=== PATIENT | female | born 1945 | race Caucasian/White ===

== ENCOUNTER 2017-07-06 07:56 | Outpatient (CLI) | payer MEDICARE, OTHER | END 2017-07-06 07:57 | disposition home or self-care (01) | DRG 556 | LOC: CONVCARE 07:56 | PROVIDERS: ATTEND Orthopaedic Surgery | DX: M25.552 Pain in left hip (principal); M16.12 Unilateral primary osteoarthritis, left hip | CPT/HCPCS: 73502 ==

== ENCOUNTER 2017-08-09 11:20 | Outpatient (CLI) | payer MEDICARE, OTHER | END 2017-08-09 11:21 | disposition home or self-care (01) | DRG 554 | LOC: CONVCARE 11:20 | PROVIDERS: ATTEND Orthopaedic Surgery | DX: M16.12 Unilateral primary osteoarthritis, left hip (principal) ==

== ENCOUNTER 2017-10-11 05:33 | Inpatient (IN) | payer MEDICARE, OTHER ==
[~2017-10-11 05:33] MED LIST: SODIUM CHLORIDE 0.9% FLUSH 10 ML SOL IV PRN
[2017-10-11] MEDS ORDERED: LACTATED RINGERS 1,000 ML IV ONE (06:00)
[2017-10-11] MEDS ORDERED: SODIUM CHLORIDE 0.9% 1000ML 1,000 ML IV SCH (06:00)
[2017-10-11] MEDS: SCOPOLAMINE 1.5MG PATCH TD SCH (06:23)
[2017-10-11] MEDS ORDERED: SODIUM CHLORIDE 0.9% 1000ML 1,000 ML IV ONE (07:00)
[2017-10-11] MEDS ORDERED: TRANEXAMIC ACID 100 MG/ML SOL ONE (07:08)
[2017-10-11] MEDS ORDERED: SODIUM CHLORIDE 20 ML 40 ML ONE (07:08)
[2017-10-11] MEDS ORDERED: BUPIVACAINE LIPOSOME 20 ML SUS ONE (07:09)
[2017-10-11] MEDS ORDERED: DEXAMETHASONE 20 MG/5 ML (4 MG/ML SOL) ONE (07:10)
[2017-10-11] MEDS ORDERED: ONDANSETRON HCL 4 MG/2 ML SOL ONE (07:10)
[2017-10-11] MEDS ORDERED: METOCLOPRAMIDE HYDROCHLORIDE 5 MG/ML SOL ONE (07:10)
[2017-10-11] MEDS ORDERED: HYDROMORPHONE 1 MG/ML SYRINGE ONE (07:10)
[2017-10-11] MEDS ORDERED: PROPOFOL 500 MG/50 ML EMU IV ONE ×3 (07:10→09:53)
[2017-10-11] MEDS ORDERED: MIDAZOLAM 2 MG/2 ML SOL ONE (07:10)
[2017-10-11] MEDS ORDERED: LIDOCAINE HCL 1% MPF SOL ONE (07:10)
[2017-10-11] MEDS ORDERED: LACTATED RINGERS 1,000 ML IV SCH (07:30)
[2017-10-11] MEDS ORDERED: EPHEDRINE SULFATE 50 MG/ML SOL ONE (08:20)
[2017-10-11] MEDS ORDERED: CEFAZOLIN SODIUM 1 GM PDS ONE ×2 (08:37→16:58)
[2017-10-11] MEDS ORDERED: VANCOMYCIN HYDROCHLORIDE 500 MG PDS IV ONE (08:57)
[2017-10-11] MEDS ORDERED: SODIUM CHLORIDE 0.9% FLUSH 10 ML SOL IV ONE (10:37)
[2017-10-11] MEDS ORDERED: DIPHENHYDRAMINE 25 MG CAP PO PRN (10:38)
[2017-10-11] MEDS ORDERED: ONDANSETRON HCL 4 MG/2 ML SOL IV PRN (10:38)
[2017-10-11] MEDS ORDERED: ONDANSETRON 4 MG ODT BU PRN (10:38)
[2017-10-11] MEDS ORDERED: SODIUM CHLORIDE 0.9% 500 ML 500 ML IV PRN (10:38)
[2017-10-11] MEDS ORDERED: MORPHINE SULFATE 10 MG/ML SOL IM PRN (10:38)
[2017-10-11] MEDS ORDERED: ALUMINUM/MAGNESIUM 30 ML SUS PO PRN (10:38)
[2017-10-11] MEDS ORDERED: FLEET ENEMA PR PRN (10:38)
[2017-10-11] MEDS ORDERED: MAGNESIUM HYDROXIDE 30 ML SUS PO PRN (10:38)
[2017-10-11] MEDS ORDERED: TEMAZEPAM 15MG 15 MG CAP PO PRN (10:38)
[2017-10-11] MEDS ORDERED: BISACODYL 10 MG SUP PR PRN (10:38)
[2017-10-11] MEDS ORDERED: DIAZEPAM 5 MG TAB PO PRN (10:38)
[2017-10-11] MEDS ORDERED: Non-Formulary Medication MISC (Nystatin 1 Gm Powder 1 APPL) TOP PRN (10:44)
[2017-10-11] MEDS: ACETAMINOPHEN 500 MG 500 MG TAB PO SCH ×3 (12:59→20:34)
[2017-10-11] MEDS: SODIUM CHLORIDE 0.9% 1000ML 1,000 ML IV SCH (13:50)
[2017-10-11] MEDS: SODIUM CHLORIDE 0.9% FLUSH 10 ML SOL IV SCH ×2 (16:29→18:56)
[2017-10-11] MEDS ORDERED: SODIUM CHLORIDE 0.9% 100 ML 100 ML IV ONE (16:58)
[2017-10-11] MEDS: CEFAZOLIN SODIUM 1 GM PDS 2 GM in SODIUM CHLORIDE 0.9% 100 ML 100 ML IV SCH (17:10)
[2017-10-11] MEDS: SENNOSIDES A AND B 8.6 MG TAB PO SCH (20:33)
[2017-10-11] MEDS: OXYCODONE HYDROCHLORIDE 5 MG TAB PO PRN (22:51)
[2017-10-12] MEDS ORDERED: CEFAZOLIN SODIUM 1 GM PDS ONE (00:05)
[2017-10-12] MEDS ORDERED: SODIUM CHLORIDE 0.9% 100 ML 100 ML IV ONE (00:05)
[2017-10-12] MEDS: CEFAZOLIN SODIUM 1 GM PDS 2 GM in SODIUM CHLORIDE 0.9% 100 ML 100 ML IV SCH (00:40)
[2017-10-12] MEDS: SODIUM CHLORIDE 0.9% FLUSH 10 ML SOL IV SCH ×3 (01:39→11:06)
[2017-10-12] MEDS: OXYCODONE HYDROCHLORIDE 5 MG TAB PO PRN ×6 (05:57→22:29)
[2017-10-12] MEDS: SODIUM CHLORIDE 0.9% 1000ML 1,000 ML IV SCH (05:59)
[2017-10-12] MEDS: LEVOTHYROXINE SODIUM 50 MCG TAB PO SCH (06:00)
[2017-10-12 07:23] LABS: MEAN CORPUSCULAR HGB CONC 33.1 gm/dl (32.0-36.0)
[2017-10-12] MEDS: ACETAMINOPHEN 500 MG 500 MG TAB PO SCH ×4 (08:26→20:59)
[2017-10-12] MEDS: FERROUS GLUCONATE 324 MG TABLET PO SCH (08:26)
[2017-10-12] MEDS: ALLOPURINOL 100 MG TAB PO SCH (08:27)
[2017-10-12] MEDS: RIVAROXABAN 10 MG TAB PO SCH (08:27)
[2017-10-12] MEDS: FUROSEMIDE 40 MG TAB PO SCH (08:27)
[2017-10-12 08:40] LABS: CALCIUM 8.2 mg/dl (8.5-10.1); POTASSIUM 4.5 mMol/L (3.5-5.1)
[2017-10-12] MEDS ORDERED: SODIUM CHLORIDE 0.9% 500 ML 500 ML IV SCH (08:45)
[2017-10-12] MEDS ORDERED: LOSARTAN POTASSIUM 50 MG TAB PO SCH (09:00)
[2017-10-12] MEDS ORDERED: METOPROLOL SUCCINATE 50 MG ER TAB PO SCH (09:00)
[2017-10-12] MEDS ORDERED: LEVOTHYROXINE SODIUM 50 MCG TAB PO SCH (09:00)
[2017-10-12] MEDS: SENNOSIDES A AND B 8.6 MG TAB PO SCH (20:59)
[2017-10-13] MEDS: SODIUM CHLORIDE 0.9% FLUSH 10 ML SOL IV SCH ×4 (05:50→19:04)
[2017-10-13] MEDS: LEVOTHYROXINE SODIUM 50 MCG TAB PO SCH (07:31)
[2017-10-13] MEDS: OXYCODONE HYDROCHLORIDE 5 MG TAB PO PRN ×3 (07:31→22:12)
[2017-10-13 07:37] LABS: BASOPHILS % (AUTO) 1 % (0-3); EOSINOPHILS % (AUTO) 1 % (0-9); HEMATOCRIT 25 % (35-47); MEAN CORPUSCULAR HGB CONC 35.2 gm/dl (32.0-36.0); MEAN CORPUSCULAR VOLUME 85 fL (81-99); MONOCYTES % (AUTO) 8.9 % (0-12); NEUTROPHILS % (AUTO) 56.8 % (37-80)
[2017-10-13] MEDS: ACETAMINOPHEN 500 MG 500 MG TAB PO SCH ×4 (09:16→20:39)
[2017-10-13] MEDS: FERROUS GLUCONATE 324 MG TABLET PO SCH (09:17)
[2017-10-13] MEDS: FUROSEMIDE 40 MG TAB PO SCH (09:17)
[2017-10-13] MEDS: RIVAROXABAN 10 MG TAB PO SCH (09:17)
[2017-10-13] MEDS: ALLOPURINOL 100 MG TAB PO SCH (09:18)
[2017-10-13] MEDS: SENNOSIDES A AND B 8.6 MG TAB PO SCH (20:40)
[2017-10-14] MEDS: OXYCODONE HYDROCHLORIDE 5 MG TAB PO PRN ×3 (02:09→16:36)
[2017-10-14] MEDS: SODIUM CHLORIDE 0.9% FLUSH 10 ML SOL IV SCH (02:10)
[2017-10-14] MEDS: SCOPOLAMINE 1.5MG PATCH TD SCH (06:06)
[2017-10-14] MEDS: LEVOTHYROXINE SODIUM 50 MCG TAB PO SCH (06:06)
[2017-10-14 08:01] LABS: CALCIUM 7.9 mg/dl (8.5-10.1); POTASSIUM 4.1 mMol/L (3.5-5.1)
[2017-10-14] MEDS: ACETAMINOPHEN 500 MG 500 MG TAB PO SCH ×4 (08:29→23:51)
[2017-10-14] MEDS: FUROSEMIDE 40 MG TAB PO SCH (08:30)
[2017-10-14] MEDS: FERROUS GLUCONATE 324 MG TABLET PO SCH (08:30)
[2017-10-14] MEDS: RIVAROXABAN 10 MG TAB PO SCH (08:30)
[2017-10-14] MEDS: ALLOPURINOL 100 MG TAB PO SCH (08:31)
[2017-10-14 15:35] VITALS: O2SAT 95
[2017-10-14] MEDS: SENNOSIDES A AND B 8.6 MG TAB PO SCH (20:44)
[2017-10-15] MEDS: OXYCODONE HYDROCHLORIDE 5 MG TAB PO PRN ×3 (04:01→14:13)
[2017-10-15] MEDS: LEVOTHYROXINE SODIUM 50 MCG TAB PO SCH (06:51)
[2017-10-15 07:34] LABS: CALCIUM 7.9 mg/dl (8.5-10.1); POTASSIUM 3.7 mMol/L (3.5-5.1)
[2017-10-15 07:58] VITALS: BP 106/70; PULSE 78; RESP 16; TEMP 98.5
[2017-10-15] MEDS: RIVAROXABAN 10 MG TAB PO SCH (08:38)
[2017-10-15] MEDS: FERROUS GLUCONATE 324 MG TABLET PO SCH (08:38)
[2017-10-15] MEDS: ACETAMINOPHEN 500 MG 500 MG TAB PO SCH ×2 (08:38→12:56)
[2017-10-15] MEDS: ALLOPURINOL 100 MG TAB PO SCH (08:38)
[2017-10-15] MEDS: FUROSEMIDE 40 MG TAB PO SCH (08:38)
[2017-10-15] MEDS ORDERED: PNEUMOCOCCAL VACCINE 0.5 ML SOL IM ONE (10:36)
== END 2017-10-15 14:20 | disposition home or self-care (01) | DRG 470 ==
LOC: ACUTE CARE 05:33
PROVIDERS: ADMIT Orthopaedic Surgery; ATTEND Orthopaedic Surgery
PROC: F01ZDZZ Gait and/or Balance Assessment (ICD-10-PCS; 2017-10-11)
PROC: F01ZBZZ Bed Mobility Assessment (ICD-10-PCS; 2017-10-11)
PROC: F01ZCZZ Transfer Assessment (ICD-10-PCS; 2017-10-11)
PROC: 0SRB0JA Replacement of Left Hip Joint with Synthetic Substitute, Uncemented, Open Approach (ICD-10-PCS; principal; 2017-10-11 08:00)
PROC: 30233N1 Transfusion of Nonautologous Red Blood Cells into Peripheral Vein, Percutaneous Approach (ICD-10-PCS; 2017-10-12)
PROC: F02Z0ZZ Bathing/Showering Assessment (ICD-10-PCS; 2017-10-12)
PROC: F02Z1ZZ Dressing Assessment (ICD-10-PCS; 2017-10-12)
PROC: F02Z3ZZ Grooming/Personal Hygiene Assessment (ICD-10-PCS; 2017-10-12)
DX: M16.12 Unilateral primary osteoarthritis, left hip (principal); Z96.642 Presence of left artificial hip joint; D62 Acute posthemorrhagic anemia; E03.9 Hypothyroidism, unspecified; M67.854 Other specified disorders of tendon, left hip; M70.62 Trochanteric bursitis, left hip; I10 Essential (primary) hypertension; M1A.9XX0 Chronic gout, unspecified, without tophus (tophi); R22.42 Localized swelling, mass and lump, left lower limb; G47.30 Sleep apnea, unspecified
CPT/HCPCS: 36415; 73502; 80048; 80051; 82565; 84520; 85025; 85027; 90732; 94150; 99070; J0690; J1100; J2250; J2405; J2765; J3370; P9016; A4450; A6232; A9270; A9270-GY; G0008; J1170; J2001; J2704; J3490; L1830; Q3014

== ENCOUNTER 2017-11-22 10:16 | Outpatient (CLI) | payer MEDICARE, OTHER | END 2017-11-22 10:17 | disposition home or self-care (01) | DRG 561 | LOC: CONVCARE 10:16 | PROVIDERS: ATTEND Orthopaedic Surgery | DX: Z47.1 Aftercare following joint replacement surgery (principal); Z96.642 Presence of left artificial hip joint | CPT/HCPCS: 73501 ==

== ENCOUNTER 2018-10-17 10:21 | Outpatient (CLI) | payer MEDICARE, OTHER | END 2018-10-17 10:22 | disposition home or self-care (01) | DRG 561 | LOC: CONVCARE 10:21 | PROVIDERS: ATTEND Orthopaedic Surgery | DX: Z47.1 Aftercare following joint replacement surgery (principal); Z96.642 Presence of left artificial hip joint | CPT/HCPCS: 73501 ==

== ENCOUNTER 2019-05-01 11:53 | Observation (INO) | payer MEDICARE, OTHER ==
[2019-05-01] MEDS: SODIUM CHLORIDE 0.9% 1000ML 1,000 ML IV SCH ×2 (12:39→20:40)
[2019-05-01] MEDS: CELECOXIB 100 MG CAP PO SCH (12:39)
[2019-05-01] MEDS: ONDANSETRON 4 MG ODT BU PRN ×2 (12:39→20:40)
[2019-05-01] MEDS: ACETAMINOPHEN 500 MG 500 MG TAB PO SCH ×3 (12:39→20:41)
[2019-05-01] MEDS ORDERED: OXYCODONE HYDROCHLORIDE 5 MG TAB PO SCH (16:30)
[2019-05-01] MEDS ORDERED: OXYCODONE HYDROCHLORIDE 5 MG TAB PO PRN (17:42)
[2019-05-01] MEDS ORDERED: DOCUSATE SODIUM 100 MG SGL PO PRN (17:44)
[2019-05-01] MEDS ORDERED: PEG-400/PROPYLENE GLYCOL 1 DROP SOL ONE (18:29)
[2019-05-01] MEDS ORDERED: PEG-400/PROPYLENE GLYCOL 1 DROP SOL EACHEYE PRN (20:00)
[2019-05-01] MEDS: GABAPENTIN 300 MG CAP PO SCH (20:41)
[2019-05-01] MEDS: ERYTHROMYCIN OPTHAL 1 GM TUBE LEFTEYE SCH (21:42)
[2019-05-02] MEDS: SODIUM CHLORIDE 0.9% 1000ML 1,000 ML IV SCH ×3 (05:06→21:45)
[2019-05-02] MEDS: LEVOTHYROXINE 75 MCG PO SCH (06:57)
[2019-05-02] MEDS ORDERED: LEVOTHYROXINE SODIUM 50 MCG TAB PO SCH (07:00)
[2019-05-02] MEDS: LOSARTAN POTASSIUM 50 MG TAB PO SCH (08:49)
[2019-05-02] MEDS: FERROUS GLUCONATE 324 MG TABLET PO SCH (08:49)
[2019-05-02] MEDS: FUROSEMIDE 40 MG TAB PO SCH (08:50)
[2019-05-02] MEDS: GABAPENTIN 300 MG CAP PO SCH ×3 (08:51→21:49)
[2019-05-02] MEDS: ALLOPURINOL 100 MG TAB PO SCH (08:51)
[2019-05-02] MEDS: VALACYCLOVIR HCL 500 MG TAB PO SCH (08:51)
[2019-05-02] MEDS: POTASSIUM CHLORIDE 10 MEQ TER PO SCH (08:52)
[2019-05-02] MEDS: LACTOBACILLUS COMBINATION NO 8 PO SCH (08:52)
[2019-05-02] MEDS: ERYTHROMYCIN OPTHAL 1 GM TUBE LEFTEYE SCH ×2 (08:52→21:48)
[2019-05-02] MEDS: ONDANSETRON 4 MG ODT BU PRN (08:57)
[2019-05-02] MEDS: ACETAMINOPHEN 500 MG 500 MG TAB PO SCH ×3 (08:57→21:45)
[2019-05-02] MEDS: CELECOXIB 100 MG CAP PO SCH (08:58)
[2019-05-02] MEDS ORDERED: RIVAROXABAN 10 MG TAB PO SCH (09:00)
[2019-05-03] MEDS: SODIUM CHLORIDE 0.9% 1000ML 1,000 ML IV SCH (06:35)
[2019-05-03] MEDS: LEVOTHYROXINE 75 MCG PO SCH (07:06)
[2019-05-03] MEDS: POTASSIUM CHLORIDE 10 MEQ TER PO SCH (08:46)
[2019-05-03] MEDS: FUROSEMIDE 40 MG TAB PO SCH (08:46)
[2019-05-03] MEDS: ALLOPURINOL 100 MG TAB PO SCH (08:46)
[2019-05-03] MEDS: LACTOBACILLUS COMBINATION NO 8 PO SCH (08:47)
[2019-05-03] MEDS: GABAPENTIN 300 MG CAP PO SCH (08:47)
[2019-05-03] MEDS: FERROUS GLUCONATE 324 MG TABLET PO SCH (08:48)
[2019-05-03] MEDS: LOSARTAN POTASSIUM 50 MG TAB PO SCH (08:48)
[2019-05-03] MEDS: ACETAMINOPHEN 500 MG 500 MG TAB PO SCH (08:49)
[2019-05-03] MEDS: ERYTHROMYCIN OPTHAL 1 GM TUBE LEFTEYE SCH (08:49)
[2019-05-03] MEDS: CELECOXIB 100 MG CAP PO SCH (08:49)
[2019-05-03] MEDS: VALACYCLOVIR HCL 500 MG TAB PO SCH (08:50)
[2019-05-03 09:14] VITALS: BP 138/80; PULSE 62; RESP 18; TEMP 97.6; O2SAT 92
== END 2019-05-03 10:55 | disposition home or self-care (01) | DRG 125 ==
LOC: ACUTE CARE 12:01
PROVIDERS: ADMIT Family Medicine; ATTEND Family Medicine
DX: B02.31 Zoster conjunctivitis (principal); R11.2 Nausea with vomiting, unspecified
CPT/HCPCS: A6232; A9270; A9270-GY